=== PATIENT | male | born 1980 | race American Indian/Alaskan Native ===

== ENCOUNTER 2019-03-04 05:25 | Emergency (ER) | payer MEDICAID ==
[2019-03-04] MEDS: Sodium Chloride 0.9% 1,000 ML IV ONE (05:40)
--- NOTE | 2019-03-04 06:01 | EDM.PDOC ---
ED HPI GENERAL MEDICAL PROBLEM - General Chief Complaint: General Stated Complaint: intoxication Time Seen by Provider: 03/04/19 05:35 Source of Information: Reports: EMS, Old Records, Police History Limitations: Reports: Intoxication, Uncooperative - History of Present Illness INITIAL COMMENTS - FREE TEXT/NARRATIVE: This patient is a 38 year old male that presents to the ER via ambulance and police. The patient upon initial arrival is nonverbal, then after first 30 minutes becomes more verbal but with mumbled/garbled speech that is not understood except one word "hey". The report comes from police and EMS. The police report the patient is from the [place] area. They report that the patient came here to [place] 2 days ago to help ex- move here. The police reports that he refused to go back to [place] and has been staying here the last 2 days. Police reports they were called to the house for domestic , when the reported that the patient took her Lisinopril to hurt himself. The police also reports the patient drank a known half bottle of vodka. Poison control was called, reported peak times of Lisinopril is 8 hours, medication is well tolerated, order BMP and Tylenol level, just give fluids and watch for hypotension. Upon arrival there are two bottles of Lisinopril/hctz 10/12.5mg tablets. Both bottles show quantity of 30 filled in each. So, a total of 60 pills filled. Bottle filled 02/01/19 quantity 30, there is 7 pills remaining. Bottle filled 03/02/19 quantity 30, there is 29 pills remaining. The patient is unable to give me any history. I reviewed patient previous history and ER visits to other facilities in our system. He does have history of intoxication, elevated liver enzymes. Onset: Today Onset Date: 03/04/19 Severity: Moderate Improves with: Reports: None Worsens with: Reports: None Associated Symptoms: Denies: Seizure - Related Data Allergies Allergy/AdvReac Type Severity Reaction Status Date / Time Penicillins Allergy Cannot Verified 03/04/19 05:49 Remember Home Meds: Home Meds . [Unable to Verify Home Med List] 03/04/19 [History] Past Medical History - Past Health History Medical/Surgical History: Denies Medical/Surgical History HEENT History: Reports: Impaired Vision Cardiovascular History: Reports: None Other Respiratory History: RAD(REACTIVE AIRWAY DISEASE) Gastrointestinal History: Reports: None Genitourinary History: Reports: None Musculoskeletal History: Reports: Back Pain, Chronic Other Musculoskeletal History: RIGHT ANKLE FRACTURE Neurological History: Reports: None Psychiatric History: Reports: Anxiety, Depression Endocrine/Metabolic History: Reports: Hypothyroidism Hematologic History: Reports: None Immunologic History: Reports: None Oncologic (Cancer) History: Reports: None Dermatologic History: Reports: None - Infectious Disease History Infectious Disease History: Reports: Hepatitis A - Past Surgical History Head Surgeries/Procedures: Reports: None Musculoskeletal Surgical History: Reports: Arthroscopic Knee Social & Family History - Family History Family Medical History: Noncontributory - Caffeine Use Caffeine Use: Reports: Coffee, Energy Drinks, Soda ED ROS GENERAL - Review of Systems Review Of Systems: See Below (Initially upon arrival was not able to obtain due to patient nonverbal. But now at 0730am now able to obtain from patient.) Constitutional: Reports: No Symptoms HEENT: Reports: No Symptoms Respiratory: Reports: No Symptoms Cardiovascular: Reports: No Symptoms Endocrine: Reports: No Symptoms GI/Abdominal: Reports: No Symptoms : Reports: No Symptoms Musculoskeletal: Reports: No Symptoms Skin: Reports: No Symptoms Neurological: Reports: No Symptoms Psychiatric: Reports: Other ("I was just really pissed off") Hematologic/Lymphatic: Reports: No Symptoms Immunologic: Reports: No Symptoms ED EXAM, GENERAL - Physical Exam Exam: See Below Exam Limited By: Other (intoxication, uncooperative. Mumbled garbled speech.) General Appearance: Alert, Obese Eye Exam: Bilateral Eye: Normal Inspection, PERRL Ears: Normal External Exam, Normal Canal, Hearing Grossly Normal, Normal TMs Ear Exam: Bilateral Ear: Auricle Normal, Canal Normal, TM normal Nose: Normal Inspection, Normal Mucosa, No Blood Throat/Mouth: Normal Lips, Normal Teeth, Normal Gums, Normal Oropharynx, No Airway Compromise, Other (mild drooling, nonverbal) Head: Atraumatic, Normocephalic Neck: Normal Inspection, Supple, Non-Tender, Full Range of Motion Respiratory/Chest: No Respiratory Distress, Lungs Clear, Normal Breath Sounds, No Accessory Muscle Use, Chest Non-Tender Cardiovascular: Normal Peripheral Pulses, No Edema, No Gallop, No JVD, No Murmur , No Rub, Tachycardia (102 on exam) Peripheral Pulses: 2+: Radial (L), Radial (R), Posterior Tibial (L), Posterior Tibial (R), Dorsalis Pedis (L), Dorsalis Pedis (R) GI/Abdominal: Normal Bowel Sounds, Soft, Non-Tender, No Organomegaly, No Distention, No Abnormal Bruit, No Mass, Pelvis Stable (Male) Exam: Deferred Rectal (Males) Exam: Deferred Back Exam: Normal Inspection, Full Range of Motion Extremities: Normal Inspection, Normal Range of Motion, Non-Tender, No Pedal Edema, Normal Capillary Refill Neurological: Alert, Other (appears intoxicated. mumbled/garbled speech. Ocassionally says "hey". GCS 11. Opens eyes spontaneously, incomprehensible words, localizes pain. Unable to obtain accurate stroke score due to patient intoxication. Patient is moving all extremeties and does not appear to have facial droop or favoring of unilateral weakness to any one side. ) Psychiatric: Flat Affect Skin Exam: Warm, Dry, Intact, Normal Color, No Rash Lymphatic: No Adenopathy Course - Vital Signs Last Recorded V/S: Last Vital Signs Temp 98.5 F 03/04/19 05:45 Pulse 102 H 03/04/19 07:10 Resp 14 03/04/19 07:10 BP 114/57 L 03/04/19 07:10 Pulse Ox 98 03/04/19 07:10 - Orders/Labs/Meds Orders: Active Orders 24 hr Category Date Time Status EKG Documentation Completion [RC] STAT Care 03/04/19 05:59 Inactive Telemetry Monitoring [Cardiac Monitoring] [RC] . Care 03/04/19 06:17 Active DIRECTED Urinary Catheter Assessment [RC] ASDIRECTED Care 03/04/19 06:14 Active Urinary Catheter Insertion [Insert Urinary Catheter] [ Care 03/04/19 06:15 Ordered OM.PC] Q24H Head wo Cont [CT] Stat Exams 03/04/19 06:02 Taken ACETAMINOPHEN [REF] Stat Lab 03/04/19 05:48 Received Sodium Chloride 0.9% [Normal Saline] 1,000 ml Med 03/04/19 07:00 Active IV ASDIRECTED Medication Orders Sodium Chloride (Normal Saline) 1,000 mls @ 250 mls/hr IV ASDIRECTED DOLLY Last Admin: 03/04/19 07:01 Dose: 250 mls/hr Labs: Laboratory Tests 03/04/19 03/04/19 03/04/19 Range/Units 05:48 05:48 06:00 WBC 11.4 H (5.0-10.0) 10^3/uL RBC 3.97 L (4.50-6.00) 10^6/uL Hgb 12.5 L (14.0-18.0) g/dL Hct 38.3 L (40.0-54.0) % MCV 96.5 H (82.0-94.0) fL MCH 31.5 (27.0-32.0) pg MCHC 32.6 L (33.0-38.0) g/dL RDW Coeff of Hayley 14.8 (11.0-15.0) % Plt Count 153 (150-400) 10^3/uL Add Manual Diff Yes Neutrophils % (Manual) 38 (35-85) % Lymphocytes % (Manual) 55 (21-55) % Monocytes % (Manual) 5 (2-12) % Eosinophils % (Manual) 2 (0-5) % Sodium 144 (136-145) mEq/L Potassium 3.4 L (3.5-5.0) mEq/L Chloride 109 H (98-106) mEq/L Carbon Dioxide 23 (21-32) mmol/L BUN 6 L (7-18) mg/dL Creatinine 0.9 (0.7-1.3) mg/dL Est Cr Clr Drug Dosing 128.12 mL/min Estimated GFR (MDRD) > 60 (>=60) mL/min Glucose 171 H (75-99) mg/dL Calcium 8.5 (8.4-10.1) mg/dL Total Bilirubin 1.5 H (0.0-1.0) mg/dL AST 51 H (15-37) U/L ALT 37 (12-78) U/L Alkaline Phosphatase 270 H (46-116) U/L Total Protein 9.2 H (6.4-8.2) g/dL Albumin 2.9 L (3.4-5.0) g/dL Urine Color Light yellow (YELLOW) Urine Appearance Clear (CLEAR) Urine pH 7.0 (4.5-8.0) Ur Specific [place] 1.010 (1.003-1.020) Urine Protein Negative (NEGATIVE) mg/dL Urine Glucose (UA) Negative (NEGATIVE) mg/dL Urine Ketones Negative (NEGATIVE) mg/dL Urine Occult Blood Negative (NEGATIVE) Urine Nitrite Negative (NEGATIVE) Urine Bilirubin Negative (NEGATIVE) Urine Urobilinogen 0.2 (0.2-1.0) EU/dL Ur Leukocyte Esterase Negative (NEGATIVE) Urine RBC Not seen (0-5) /HPF Urine WBC Not seen (0-5) /HPF Urine Opiates Screen (NEGATIVE) Ur Oxycodone Screen (NEGATIVE) Urine Methadone Screen (NEGATIVE) Ur Barbiturates Screen (NEGATIVE) U Tricyclic Antidepress (NEGATIVE) Ur Phencyclidine Scrn (NEGATIVE) Ur Amphetamine Screen (NEGATIVE) U Methamphetamines Scrn (NEGATIVE) Urine MDMA Screen (NEGATIVE) U Benzodiazepines Scrn (NEGATIVE) Urine Cocaine Screen (NEGATIVE) U Marijuana (THC) Screen (NEGATIVE) Ethyl Alcohol 307 H* (0-3) mg/dL 03/04/19 Range/Units 06:00 WBC (5.0-10.0) 10^3/uL RBC (4.50-6.00) 10^6/uL Hgb (14.0-18.0) g/dL Hct (40.0-54.0) % MCV (82.0-94.0) fL MCH (27.0-32.0) pg MCHC (33.0-38.0) g/dL RDW Coeff of Hayley (11.0-15.0) % Plt Count (150-400) 10^3/uL Add Manual Diff Neutrophils % (Manual) (35-85) % Lymphocytes % (Manual) (21-55) % Monocytes % (Manual) (2-12) % Eosinophils % (Manual) (0-5) % Sodium (136-145) mEq/L Potassium (3.5-5.0) mEq/L Chloride (98-106) mEq/L Carbon Dioxide (21-32) mmol/L BUN (7-18) mg/dL Creatinine (0.7-1.3) mg/dL Est Cr Clr Drug Dosing mL/min Estimated GFR (MDRD) (>=60) mL/min Glucose (75-99) mg/dL Calcium (8.4-10.1) mg/dL Total Bilirubin (0.0-1.0) mg/dL AST (15-37) U/L ALT (12-78) U/L Alkaline Phosphatase (46-116) U/L Total Protein (6.4-8.2) g/dL Albumin (3.4-5.0) g/dL Urine Color (YELLOW) Urine Appearance (CLEAR) Urine pH (4.5-8.0) Ur Specific [place] (1.003-1.020) Urine Protein (NEGATIVE) mg/dL Urine Glucose (UA) (NEGATIVE) mg/dL Urine Ketones (NEGATIVE) mg/dL Urine Occult Blood (NEGATIVE) Urine Nitrite (NEGATIVE) Urine Bilirubin (NEGATIVE) Urine Urobilinogen (0.2-1.0) EU/dL Ur Leukocyte Esterase (NEGATIVE) Urine RBC (0-5) /HPF Urine WBC (0-5) /HPF Urine Opiates Screen Negative (NEGATIVE) Ur Oxycodone Screen Negative (NEGATIVE) Urine Methadone Screen Negative (NEGATIVE) Ur Barbiturates Screen Negative (NEGATIVE) U Tricyclic Antidepress Negative (NEGATIVE) Ur Phencyclidine Scrn Negative (NEGATIVE) Ur Amphetamine Screen Negative (NEGATIVE) U Methamphetamines Scrn Negative (NEGATIVE) Urine MDMA Screen Negative (NEGATIVE) U Benzodiazepines Scrn Negative (NEGATIVE) Urine Cocaine Screen Negative (NEGATIVE) U Marijuana (THC) Screen Negative (NEGATIVE) Ethyl Alcohol (0-3) mg/dL Meds: Medications Generic Name Dose Route Start Last Admin Trade Name Freq PRN Reason Stop Dose Admin Sodium Chloride 1,000 mls @ 250 mls/hr 03/04/19 07:00 03/04/19 07:01 Normal Saline IV 250 mls/hr ASDIRECTED DOLLY Administration Discontinued Medications Generic Name Dose Route Start Last Admin Trade Name Freq PRN Reason Stop Dose Admin Sodium Chloride 1,000 mls @ 1,000 mls/hr 03/04/19 05:50 03/04/19 05:40 Normal Saline IV 03/04/19 06:49 1,000 mls/hr .BOLUS ONE Administration - Radiology Interpretation Free Text/Narrative:: CT Head: No acute findings. CT Results Date: 03/04/19 CT Results Time: 07:15 - Re-Assessments/Exams Free Text/Narrative Re-Assessment/Exam: 03/04/19 06:51 Patient currently is becoming more coherent, he is now talking, speech is still mumbled, but more understandable. Patient still unable to give history, current location, time, person. 03/04/19 07:20 I spoke to Moo about possibility of keeping this patient and observation with lowering ETOH levels and eval patient homidical and suicidal ideations once patient sobered up. And give fluids to keep BP up. However, since we do not have the ability to have a Tylenol level done stat, they recommend transfer. Will transfer this patient. 03/04/19 07:40 I called and spoke to [facility] Hospitalist Dr. Raymond. He has accepted transfer of this patient. Departure - Departure Time of Disposition: 07:38 Disposition: DC/Tfer to Acute Hospital 02 Condition: Fair Clinical Impression: Intentional overdose of drug in tablet form Elevated ETOH level Qualifiers: Blood alcohol level: 240 mg/100 ml or more Qualified Code(s): Y90.8 - Blood alcohol level of 240 mg/100 ml or more Alcohol intoxication Qualifiers: Complication of substance-induced condition: uncomplicated Qualified Code(s): F10.920 - Alcohol use, unspecified with intoxication, uncomplicated - Discharge Information Referrals: PCP,None [Primary Care Provider] - Forms: ED Department Discharge - My Orders Last 24 Hours: My Active Orders 03/04/19 05:48 ACETAMINOPHEN [REF] Stat 03/04/19 05:59 EKG Documentation Completion [RC] STAT 03/04/19 06:02 Head wo Cont [CT] Stat 03/04/19 06:14 Urinary Catheter Assessment [RC] ASDIRECTED 03/04/19 06:15 Urinary Catheter Insertion [Insert Urinary Catheter] [OM.PC] Q24H 03/04/19 06:17 Telemetry Monitoring [Cardiac Monitoring] [RC] . DIRECTED 03/04/19 07:00 Sodium Chloride 0.9% [Normal Saline] 1,000 ml IV ASDIRECTED - Assessment/Plan Last 24 Hours: My Active Orders 03/04/19 05:48 ACETAMINOPHEN [REF] Stat 03/04/19 05:59 EKG Documentation Completion [RC] STAT 03/04/19 06:02 Head wo Cont [CT] Stat 03/04/19 06:14 Urinary Catheter Assessment [RC] ASDIRECTED 03/04/19 06:15 Urinary Catheter Insertion [Insert Urinary Catheter] [OM.PC] Q24H 03/04/19 06:17 Telemetry Monitoring [Cardiac Monitoring] [RC] . DIRECTED 03/04/19 07:00 Sodium Chloride 0.9% [Normal Saline] 1,000 ml IV ASDIRECTED Plan: PLEASE SEE RN NOTE FOR PFSH. This patient is being transferred to [facility] in [place]. The risks of transfer is hypotension, mvc, , cardiac arrest. The benefits of transfer higher level of care, tylenol level capable, mental health consult ability. The risk of staying in [place] is no ability to have STAT tylenol level drawn, this is send out, hypotension, not higher level of care, no mental health admissions or consult. The benefits of staying in [place] is close to home.
[2019-03-04 06:11] LABS: CHLORIDE,CL 109 mEq/L (98-106); SODIUM,NA 144 mEq/L (136-145)
[2019-03-04] MEDS: Sodium Chloride 0.9% 1,000 ML IV SCH (07:01)
[2019-03-04 07:10] VITALS: BP 114/57
== END 2019-03-04 09:35 ==
LOC: CC.ED 05:25
DX: T46.4X2A Poisoning by angiotensin-converting-enzyme inhibitors, intentional self-harm, initial encounter (principal); T50.2X2A Poisoning by carbonic-anhydrase inhibitors, benzothiadiazides and other diuretics, intentional self-harm, initial encounter; F10.129 Alcohol abuse with intoxication, unspecified; Z88.0 Allergy status to penicillin; Y90.8 Blood alcohol level of 240 mg/100 ml or more
CPT/HCPCS: 36415; 51701; 70450; 80053; 80305-QW; 81001; 85025; 93005; 96360; 96361; 99285-25; G0480; J7030

== ENCOUNTER 2019-06-04 18:40 | Emergency (ER) | payer MEDICAID ==
[2019-06-04 18:48] VITALS: BP 105/59; PULSE 71
[2019-06-04 19:17] LABS: CHLORIDE,CL 104 mEq/L (98-106); SODIUM,NA 140 mEq/L (136-145)
[2019-06-04] MEDS ORDERED: Sucralfate Suspension 1 GM/10 ML Cup PO ONE (19:38)
[2019-06-04] MEDS ORDERED: Pantoprazole 40 MG Tab.CR PO SCH (19:45)
--- NOTE | 2019-06-04 19:47 | EDM.PDOC ---
ED HPI GENERAL MEDICAL PROBLEM - General Chief Complaint: Abdominal Pain Stated Complaint: abd pain Time Seen by Provider: 06/04/19 19:24 Source of Information: Reports: Patient History Limitations: Reports: No Limitations - History of Present Illness INITIAL COMMENTS - FREE TEXT/NARRATIVE: Anselmo is a 39 year old male with extensive PMH including esophageal varices, liver cirrhosis, hypothyroidism and ETOH abuse, who presents to the ED with c/o feeling weak and epigastric abdominal pain. He reports in the past he has had bleeding issues where his platelets and hemoglobin get low and he vomits blood. He reports this afternoon he started to feel that way, so was worried and thought he should be seen. He denies any chest pain, shortness of breath, N/V/D , fevers, decreased appetite, urinary symptoms. Was recently seen in [place] ED on 05/14/2019 and 05/17/2019 and was transferred to [facility] on both instances. The first time with hematemesis and the second time with questionable seizure activity. He reports he currently has a heart monitor as they felt it was his heart that cause the issue and not a seizure. Per chart review, he has been seen multiple times with chronic abdominal pain in [facility] ED and transferred out with endoscopies done. He reports to me he hasn't drank in some time. Chart review does show elevated ETOH level 05/14/2019. Denies any drug use in past. Drug screen positive for amphetamines 05/17/2019. Onset: Today Duration: Chronic, Constant Location: Reports: Abdomen (midepigastric) Quality: Reports: Ache, Burning, Sharp Severity: Severe Improves with: Reports: None Worsens with: Reports: None Associated Symptoms: Reports: No Other Symptoms Abdominal Pain Score (Numeric/FACES): 9 - Related Data Allergies Allergy/AdvReac Type Severity Reaction Status Date / Time Penicillins Allergy Cannot Verified 06/04/19 18:41 Remember Home Meds: Home Meds Clindamycin HCl [Cleocin HCl] 150 mg PO QID 06/04/19 [History] Levothyroxine Sodium [Levo-T] 50 mcg PO DAILY 06/04/19 [History] Pantoprazole Sodium [Protonix] 40 mg PO DAILY #30 tablet. 06/04/19 [Rx] Sucralfate [Carafate] 1 gm PO QID #28 tablet 06/04/19 [Rx] Past Medical History - Past Health History Medical/Surgical History: Denies Medical/Surgical History HEENT History: Reports: Impaired Vision Cardiovascular History: Reports: Syncope, Other (See Below) Other Cardiovascular History: pt stated "In April I became faint and fainted. The doctors say that my heart isn't beating right so I have to wear this hear monitor for 2 weeks." Pt unsure of rhythm. Respiratory History: Reports: Sleep Apnea Other Respiratory History: RAD(REACTIVE AIRWAY DISEASE) Gastrointestinal History: Reports: Cirrhosis, GI Bleed, Other (See Below) Other Gastrointestinal History: enlarged spleen Genitourinary History: Reports: None Musculoskeletal History: Reports: Back Pain, Chronic, Fracture, Other (See Below ) Other Musculoskeletal History: RIGHT ANKLE FRACTURE Neurological History: Reports: None Psychiatric History: Reports: Anxiety, Depression Endocrine/Metabolic History: Reports: Hypothyroidism Hematologic History: Reports: Other (See Below) Other Hematologic History: states "something in my blood where my blood won't clot." Immunologic History: Reports: None Oncologic (Cancer) History: Reports: None Dermatologic History: Reports: None - Infectious Disease History Infectious Disease History: Reports: Hepatitis A - Past Surgical History Head Surgeries/Procedures: Reports: None Cardiovascular Surgical History: Reports: None Respiratory Surgical History: Reports: None GI Surgical History: Reports: EGD Endocrine Surgical History: Reports: None Musculoskeletal Surgical History: Reports: Arthroscopic Knee, ORIF Social & Family History - Family History Family Medical History: Noncontributory - Tobacco Use Smoking Status *Q: Former Smoker Used Tobacco, but Quit: Yes Month/Year Tobacco Last Used: 1yr Second Hand Smoke Exposure: No - Caffeine Use Caffeine Use: Reports: Soda - Recreational Drug Use Recreational Drug Use: No ED ROS GENERAL - Review of Systems Review Of Systems: Comprehensive ROS is negative, except as noted in HPI. ED EXAM, GI/ABD - Physical Exam Exam: See Below Exam Limited By: No Limitations General Appearance: Alert, WD/WN, No Apparent Distress Throat/Mouth: Normal Inspection, Normal Lips, Normal Gums, Normal Oropharynx, Normal Voice, No Airway Compromise Head: Atraumatic, Normocephalic Neck: Normal Inspection, Supple, Non-Tender, Full Range of Motion Respiratory/Chest: No Respiratory Distress, Lungs Clear, Normal Breath Sounds, No Accessory Muscle Use, Chest Non-Tender Cardiovascular: Normal Peripheral Pulses, Regular Rate, Rhythm, No Edema GI/Abdominal Exam: Normal Bowel Sounds, Soft, No Distention, Tender (throughout) . No: Guarding, Rigid, Rebound Back Exam: No: CVA Tenderness (L), CVA Tenderness (R) Extremities: No Pedal Edema Neurological: Alert, Oriented, CN II-XII Intact, Normal Cognition, Normal Gait, Normal Reflexes, No Motor/Sensory Deficits Psychiatric: Normal Affect, Normal Mood Course - Vital Signs Last Recorded V/S: Last Vital Signs Temp 100.1 F 06/04/19 18:44 Pulse 71 06/04/19 18:44 Resp 20 06/04/19 18:44 BP 105/59 L 06/04/19 18:44 Pulse Ox 99 06/04/19 18:44 - Orders/Labs/Meds Labs: Laboratory Tests 06/04/19 06/04/19 06/04/19 Range/Units 18:56 19:00 19:00 WBC 13.2 H (5.0-10.0) 10^3/uL RBC 3.23 L (4.50-6.00) 10^6/uL Hgb 10.2 L (14.0-18.0) g/dL Hct 31.3 L (40.0-54.0) % MCV 96.9 H (82.0-94.0) fL MCH 31.6 (27.0-32.0) pg MCHC 32.6 L (33.0-38.0) g/dL RDW Coeff of Hayley 19.0 H (11.0-15.0) % Plt Count 193 (150-400) 10^3/uL Neut % (Auto) 65.6 (35-85) % Lymph % (Auto) 22.5 (10-55) % Harrison % (Auto) 7.9 (0-16) % Eos % (Auto) 3.6 (0-5) % Baso % (Auto) 0.4 (0-3) % Neut # (Auto) 8.66 H (1.80-7.00) 10^3/uL Lymph # (Auto) 2.97 (1.00-4.80) 10^3/uL Harrison # (Auto) 1.04 H (0.00-0.80) 10^3/uL Eos # (Auto) 0.47 H (0.00-0.45) 10^3/uL Baso # (Auto) 0.05 10^3/uL Sodium 140 (136-145) mEq/L Potassium 3.8 (3.5-5.0) mEq/L Chloride 104 (98-106) mEq/L Carbon Dioxide 25 (21-32) mmol/L BUN 14 D (7-18) mg/dL Creatinine 1.0 (0.7-1.3) mg/dL Est Cr Clr Drug Dosing 104.58 mL/min Estimated GFR (MDRD) > 60 (>=60) mL/min Glucose 117 H D (75-99) mg/dL Calcium 8.8 (8.4-10.1) mg/dL Total Bilirubin 3.4 H (0.0-1.0) mg/dL AST 58 H (15-37) U/L ALT 43 (12-78) U/L Alkaline Phosphatase 270 H (46-116) U/L C-Reactive Protein 5.2 H (0.2-0.8) mg/dL Total Protein 8.7 H (6.4-8.2) g/dL Albumin 2.6 L (3.4-5.0) g/dL Amylase 89 (25-115) U/L Lipase 449 H (73-393) U/L Urine Color Rima (YELLOW) Urine Appearance Slightly cloudy (CLEAR) Urine pH 7.5 (4.5-8.0) Ur Specific [place] 1.015 (1.003-1.020) Urine Protein Trace H (NEGATIVE) mg/dL Urine Glucose (UA) Negative (NEGATIVE) mg/dL Urine Ketones Trace H (NEGATIVE) mg/dL Urine Occult Blood Negative (NEGATIVE) Urine Nitrite Negative (NEGATIVE) Urine Bilirubin Moderate H (NEGATIVE) Urine Urobilinogen >=8.0 H (0.2-1.0) EU/dL Ur Leukocyte Esterase Negative (NEGATIVE) Urine RBC Not seen (0-5) /HPF Urine WBC 5-10 H (0-5) /HPF Urine Mucus Few H (NOT SEEN) /HPF Meds: Medications Discontinued Medications Generic Name Dose Route Start Last Admin Trade Name Freq PRN Reason Stop Dose Admin Pantoprazole Sodium 40 mg 06/04/19 19:45 06/04/19 19:44 Protonix PO 40 mg DAILY DOLLY Administration Sucralfate 1 gm 06/04/19 19:38 06/04/19 19:46 Carafate PO 06/04/19 19:39 1 gm ONETIME ONE Administration - Re-Assessments/Exams Free Text/Narrative Re-Assessment/Exam: Discussed with patient that labs are stable. Patient reports he was on meds for his stomach, but he does not believe that he was discharged home from [facility] on them. He reports he is supposed to be seen by his PCP tomorrow. Departure - Departure Time of Disposition: 19:47 Disposition: Home, Self-Care 01 Condition: Fair Clinical Impression: Esophagitis - Discharge Information *PRESCRIPTION DRUG MONITORING PROGRAM REVIEWED*: No *COPY OF PRESCRIPTION DRUG MONITORING REPORT IN PATIENT MIGUEL: No Prescriptions: Pantoprazole Sodium [Protonix] 40 mg PO DAILY #30 tablet. Sucralfate [Carafate] 1 gm PO QID #28 tablet Instructions: Abdominal Pain, Adult, [id number] Referrals: PCP,Unknown [Primary Care Provider] - Forms: ED Department Discharge Additional Instructions: - Discussed that labs are stable at baseline - Hemoglobin and Platelets are normal - With history of esophageal varices and epigastric pain, recommend Protonix daily and Carafate 4x/day before meals and at bedtime. These can be picked up at [facility] tomorrow. Did get dose in ED this evening. - Follow up with PCP for recheck tomorrow as scheduled
== END 2019-06-04 20:02 | disposition home or self-care (01) ==
LOC: CC.ED 18:40
DX: K20.9 Esophagitis, unspecified (principal); Z87.891 Personal history of nicotine dependence
CPT/HCPCS: 36415; 80053; 81001; 82150; 83690; 85025; 86140; 99284; A9270